=== PATIENT | male | born 1960 | race Caucasian/White ===

== ENCOUNTER 2022-08-22 07:01 | Day surgery (SDC) | payer MEDICARE, OTHER ==
[~2022-08-22] VITALS: Ht 177.8 cm; Wt 81.8 kg
[~2022-08-22 07:01] MED LIST: ALBU18HF12 IH; LEVO150T11 PO; SODIUM CHLORIDE 0.9% 1,000 ML IV ONE
[2022-08-22] MEDS ORDERED: LIDOCAINE 4% 50 ML SOLUTION TP ONE (07:02)
[2022-08-22] MEDS ORDERED: LIDOCAINE 2% 11 ML JELLY TP ONE (07:02)
[2022-08-22] MEDS ORDERED: BENZOCAINE 20% 50 MCG/SPRAY 57 GM TP ONE (07:02)
[2022-08-22] MEDS ORDERED: SODIUM CHLORIDE 0.9% 1,000 ML ONE (07:42)
[2022-08-22] MEDS ORDERED: FentaNYL CITRATE PF 100 MCG/2 ML VIAL ONE (08:28)
[2022-08-22] MEDS ORDERED: MIDAZOLAM HCL 2 MG/2 ML VIAL ONE (08:28)
[2022-08-22] MEDS ORDERED: MethylPREDNISolone SOD SUCC 125 MG/2 ML VIAL ONE (09:55)
[2022-08-22] MEDS ORDERED: MethylPREDNISolone SOD SUCC 125 MG/2 ML VIAL IVP ONE (10:00)
== END 2022-08-22 11:30 | disposition home or self-care (01) ==
LOC: SURGERY 07:01
PROVIDERS: ATTEND Internal Medicine Critical Care Medicine
DX: J38.4 Edema of larynx (principal); B37.0 Candidal stomatitis; F17.210 Nicotine dependence, cigarettes, uncomplicated; Z87.01 Personal history of pneumonia (recurrent); Z98.890 Other specified postprocedural states; E03.9 Hypothyroidism, unspecified
CPT/HCPCS: 31623; 88112; 87206; 87101; 87220; 87070; 31624; 71045; 87015; J3010; J2250; J2930; Q9967; J7030; Z7610